=== PATIENT | male | born 1990 | race Caucasian/White ===

== ENCOUNTER 2019-03-22 03:07 | Emergency (ER) | payer SELFPAY ==
[~2019-03-22] VITALS: Ht 182.9 cm; Wt 104.8 kg
[2019-03-22 03:10] VITALS: BP 128/86
--- NOTE | 2019-03-22 03:17 | NUR ---
PT AMBULATED TO BED 7
--- NOTE | 2019-03-22 03:20 | NUR ---
PT CAME TO ER C/O OF SORE THROAT AND DIFFICULTY BREATHING SINCE 03/19/19. PT IS AFEBRILE, NO CHILLS. RESPIRATIONS ARE EVEN AND UNLABORED. OXYGEN SATURATION AT 98% ON RA. PT BACK OF THROAT IS RED AND SWOLLEN. PT DENIES COUGH. PT ALSO HAS PAIN 10/10 TO LEFT EAR. DENIES N/V/D. PT HAS BEEN TAKING MOTRIN 200MG AND CHLORASEPTIC SORE THROAT SPRAY, LAST DOSE 11PM. ALLERGIES: PENICILLIN. NO MED HX. SAFETY MEASURES IN PLACE. WAITING FOR ERMD TO EVALUATE PT.
[2019-03-22] MEDS ORDERED: LIDOCAINE VISCOUS 2% 20 ML UDC PO ONE ×2 (03:50→04:30)
[2019-03-22] MEDS ORDERED: CLINDAMYCIN 600 MG/4 ML VIAL IM ONE (04:15)
[2019-03-22] MEDS ORDERED: KETOROLAC 60 MG/2 ML VIAL IM ONE (04:15)
[2019-03-22] MEDS ORDERED: methylPREDNISolone SS 125 MG/2 ML VIAL IM ONE (04:15)
--- NOTE | 2019-03-22 04:40 | NUR ---
ERMD AT BEDSIDE FOR PROCEDURE. SUCTION AVAILABLE AT BEDSIDE. PT TOLERATED PROCEDURE WELL.
--- NOTE | 2019-03-22 05:00 | NUR ---
CONTINUOUS SUCTION ON AND BEING USED BY PT NEEDED.
--- NOTE | 2019-03-22 05:30 | NUR ---
PT RESTING IN BED COMFORTABLY. VSS. FAMILY AT BEDSIDE. WILL CONTINUE TO MONITOR.
--- NOTE | 2019-03-22 05:55 | NUR ---
ERMD AT BEDSIDE
[2019-03-22] MEDS ORDERED: MORPHINE SULFATE 2 MG/ML SYR IM ONE (06:00)
[2019-03-22 06:26] VITALS: BP 124/80
--- NOTE | 2019-03-22 06:27 | NUR ---
Patient discharged with v/s stable. Written and verbal after care instructions given and explained. Pt encouraged to gargle with salt water and take antibiotics as prescribed. Patient alert, oriented and verbalized understanding of instructions. Ambulatory with steady gait. All questions addressed prior to discharge. ID band removed. Patient advised to follow up with PMD. Rx of LIDOCAINE, CLINDAMYCIN, TYLENOL, MOTRIN, PREDNISONE WAS given. Patient educated on indication of medication including possible reaction and side effects. Opportunity to ask questions provided and answered.
== END 2019-03-22 06:26 | disposition home or self-care (01) ==
LOC: MED 03:07
DX: J36 Peritonsillar abscess (principal); Z88.0 Allergy status to penicillin
CPT/HCPCS: 42700; 96372; 99283; J1885; J2270; J2930; J3490